=== PATIENT | female | born 1960 | race Hispanic/Latino ===

== ENCOUNTER 2018-05-17 07:16 | Emergency (ER) | payer OTHER ==
[2018-05-17] MEDS ORDERED: ONDANSETRON 4 MG/2 ML VIAL ONE (07:49)
[2018-05-17] MEDS ORDERED: KETOROLAC 30 MG/ML INJ ONE (07:49)
[2018-05-17] MEDS ORDERED: MORPHINE 4 MG/ML SYR ONE ×2 (07:49→09:09)
[2018-05-17 08:00] LABS: Absolute Lymphocytes (CBC) 2.7 K/uL (0.7-4.9); Absolute Monocytes 0.5 K/uL (0.1-1.3); Absolute Neutrophil 5.5 K/uL (1.8-8.0); Basophils % 0.8 % (0-1.3); Eosinophils % 1.2 % (0-4.4); Hematocrit 39.8 % (36.0-45.0); Lymphocytes % 30.7 % (15.3-44.8); MCH 32.1 pg (27.0-35.0); MCV 91.4 fL (80-100); Monocytes % 5.5 % (3.3-12.3); RBC Red Blood Cell Count 4.35 M/uL (3.86-4.86)
[2018-05-17] MEDS ORDERED: DIAZEPAM 5 MG TABLET ONE (08:18)
[2018-05-17 08:19] LABS: Albumin 4.6 g/dL (3.4-5.0); Bilirubin Total 0.5 mg/dL (0.2-1.0); Potassium 3.6 mmol/L (3.5-5.1); Protein, Total 7.9 g/dL (6.4-8.2)
[2018-05-17] MEDS ORDERED: DEXAMETHASONE 10 MG/ML VIAL ONE (08:55)
--- NOTE | 2018-05-17 09:20 | RAD REPORT ---
EXAM DESCRIPTION: CT - Angio Aorta For Dissection - 05/17/2018 8:42 am CLINICAL HISTORY: . Chest and abd pain COMPARISON: None TECHNIQUE: Computed tomography angiography of the chest, abdomen pelvis were obtained. 100 cc Isovue 370 was administered intravenously. Coronal and sagittal reconstruction were performed. MIP 3D reconstruction was performed All CT scans are performed using dose optimization technique as appropriate and may include automated exposure control or mA/KV adjustment according to patient size. FINDINGS: An aortic dissection is not seen. An aortic aneurysm is not displayed. The celiac, SMA and MACIE are patent . A lung consolidation is not present. A pericardial effusion is not seen. A pleural effusion is not n oted. The spleen, pancreas adrenals and kidneys demonstrate no significant abnormality. Hepatic cysts are present. The largest measures 6 centimeters The appendix is normal. There no evidence diverticulitis. No ascites is noted. A 45 millimeter mass abuts the right aspect of the uterus containing calcification. A 18 millimeter fatty mass abuts the proximal ascending colon with mild stranding within the adjacent fat. This has the appearance of epiploic appendagitis A tiny umbilical hernia is present IMPRESSION: Negative for an aortic dissection. Epiploic appendagitis involving the right colon 45 millimeter mass abutting the right aspect of the uterus containing calcification most likely repre sents a subserosal fibroid. An ovarian mass is less likely. It is recommended that the patient have a followup ultrasound in 2 months to assess stability and further characterize the mass.
--- NOTE | 2018-05-17 09:22 | RAD REPORT ---
EXAM DESCRIPTION: RAD - Pelvis - 05/17/2018 8:29 am CLINICAL HISTORY: Pelvic pain FINDINGS: No fracture or dislocation is seen. No bone or joint abnormality is displayed
--- NOTE | 2018-05-17 09:22 | RAD REPORT ---
EXAM DESCRIPTION: RAD - Lumbar Spine 3 Views - 05/17/2018 8:29 am CLINICAL HISTORY: Back pain FINDINGS: The alignment of the lumbar spine is satisfactory. No fracture or dislocation is seen. Minimal spondylosis involves the lumbar spine
--- NOTE | 2018-05-17 09:42 | EDPHYS ---
Physician Documentation [facility] Name: Laly Machado Age: 57 yrs Sex: Female : 1960 Arrival Date: 05/17/2018 Time: 07:20 Bed 14 Private MD: Julia Corrales K ED Physician Jimbo Starks HPI: 05/17 07:47 This 57 yrs old Female presents to ER via Wheelchair with complaints of Leg xavier Pain. 07:47 The patient presents with decreased range of motion. The complaints affect the right xavier gluteus deepti and right gluteal fold. Context: The problem was sustained at an unknown site. Onset: The symptoms/episode began/occurred 1 day(s) ago. Modifying factors: The symptoms are alleviated by nothing. the symptoms are aggravated by movement. Associated signs and symptoms: The patient has no apparent associated signs or symptoms. Treatment prior to arrival includes: no previous treatment. The patient has not experienced similar symptoms in the past. Historical: - Allergies: 07:30 No Known Allergies; tw2 - Home Meds: 07:30 losartan 50 mg oral tab 1 tab once daily [Active]; tw2 - PMHx: 07:30 Hypertension; tw2 - PSHx: 07:30 None; tw2 - Immunization history:: Adult Immunizations up to date. - Social history:: Smoking status: Patient/guardian denies using tobacco. - Ebola Screening: : Patient negative for fever greater than or equal to 101.5 degrees Fahrenheit, and additional compatible Ebola Virus Disease symptoms Patient denies travel to an Ebola-affected area in the 21 days before illness onset. - Family history:: not pertinent. ROS: 07:47 Constitutional: Negative for fever, chills, and weight loss, Eyes: Negative for injury, xavier pain, redness, and discharge, ENT: Negative for injury, pain, and discharge, Neck: Negative for injury, pain, and swelling, Cardiovascular: Negative for chest pain, palpitations, and edema, Respiratory: Negative for shortness of breath, cough, wheezing, and pleuritic chest pain, Abdomen/GI: Negative for abdominal pain, nausea, vomiting, diarrhea, and constipation, : Negative for injury, bleeding, discharge, and swelling, MS/Extremity: Negative for injury and deformity, Skin: Negative for injury, rash, and discoloration, Neuro: Negative for headache, weakness, numbness, tingling, and seizure, Psych: Negative for depression, anxiety, suicide ideation, homicidal ideation, and hallucinations, Allergy/Immunology: Negative for hives, rash, and allergies, Endocrine: Negative for neck swelling, polydipsia, polyuria, polyphagia, and marked weight changes. 07:47 Back: Positive for pain at rest. Exam: 07:47 Constitutional: This is a well developed, well nourished patient who is awake, alert, xavier and in no acute distress. Head/Face: Normocephalic, atraumatic. Eyes: Pupils equal round and reactive to light, extra-ocular motions intact. Lids and lashes normal. Conjunctiva and sclera are non-icteric and not injected. Cornea within normal limits. Periorbital areas with no swelling, redness, or edema. ENT: Nares patent. No nasal discharge, no septal abnormalities noted. Tympanic membranes are normal and external auditory canals are clear. Oropharynx with no redness, swelling, or masses, exudates, or evidence of obstruction, uvula midline. Mucous membranes moist. Neck: Trachea midline, no thyromegaly or masses palpated, and no cervical lymphadenopathy. Supple, full range of motion without nuchal rigidity, or vertebral point tenderness. No Meningismus. Chest/axilla: Normal chest wall appearance and motion. Nontender with no deformity. No lesions are appreciated. Cardiovascular: Regular rate and rhythm with a normal S1 and S2. No gallops, murmurs, or rubs. Normal PMI, no JVD. No pulse deficits. Respiratory: Lungs have equal breath sounds bilaterally, clear to auscultation and percussion. No rales, rhonchi or wheezes noted. No increased work of breathing, no retractions or nasal flaring. Abdomen/GI: Soft, non-tender, with normal bowel sounds. No distension or tympany. No guarding or rebound. No evidence of tenderness throughout. Back: No spinal tenderness. No costovertebral tenderness. Full range of motion. Skin: Warm, dry with normal turgor. Normal color with no rashes, no lesions, and no evidence of cellulitis. Neuro: Awake and alert, GCS 15, oriented to person, place, time, and situation. Cranial nerves II-XII grossly intact. Motor strength 5/5 in all extremities. Sensory grossly intact. Cerebellar exam normal. Normal gait. Psych: Awake, alert, with orientation to person, place and time. Behavior, mood, and affect are within normal limits. 07:47 Musculoskeletal/extremity: Circulation is intact in all extremities. Sensation intact. Compartment Syndrome exam of affected extremity: is normal. DVT Exam: no swelling, negative Homans' sign noted on exam, no appreciated bluish discoloration, no erythema, no increased warmth, pain, tenderness. 07:47 Skin: Appearance: Color: normal in color, Temperature: normal temperature, Moisture: normal moisture, petechiae, not noted, ecchymosis, not noted, diaphoresis is not appreciated, swelling, is not appreciated. Vital Signs: 07:29 BP 166 / 92; Pulse 80; Resp 18; Temp 97.9(O); Pulse Ox 99% on R/A; Pain 10/10; tw2 08:30 BP 132 / 67; Pulse 66; Resp 17; Pulse Ox 96% on R/A; tw2 09:24 BP 128 / 86; Pulse 65; Resp 17; Pulse Ox 96% on R/A; tw2 10:45 BP 117 / 65; Pulse 66; Resp 17; Pulse Ox 99% on R/A; tw2 MDM: 07:24 Patient medically screened. [facility] 07:50 Data reviewed: vital signs, nurses notes, lab test result(s), radiologic studies, CT xavier scan, plain films. 05/17 07:47 Order name: CBC with Diff; Complete Time: 08:39 xavier 05/17 07:47 Order name: Comprehensive Metabolic Panel; Complete Time: 08:39 xavier 05/17 07:47 Order name: CT Aorta for Dissection; Complete Time: 09:33 xavier 05/17 07:47 Order name: Pelvis XRAY; Complete Time: 09:33 xavier 05/17 07:47 Order name: Lumbar Spine (3 Views) XRAY; Complete Time: 09:33 xavier 05/17 09:45 Order name: Urine Dipstick--Ancillary (enter results); Complete Time: 10:38 ds4 05/17 07:47 Order name: Urine Dipstick-Ancillary (obtain specimen); Complete Time: 09:46 xavier Administered Medications: 07:45 Drug: Zofran 4 mg Route: IVP; Site: right antecubital; tw2 08:16 Follow up: Response: No adverse reaction tw2 07:47 Drug: TORadol 30 mg Route: IVP; Site: right antecubital; tw2 08:16 Follow up: Response: No adverse reaction; Pain is unchanged, physician notified tw2 07:49 Drug: morphine 4 mg Route: IVP; Site: right antecubital; tw2 08:15 Follow up: Response: No adverse reaction; Pain is unchanged, physician notified tw2 08:15 Drug: Valium 5 mg Route: PO; tw2 10:07 Follow up: Response: No adverse reaction; Pain is decreased tw2 09:08 Drug: Decadron - Dexamethasone 10 mg Route: IVP; Site: right antecubital; tw2 10:07 Follow up: Response: No adverse reaction tw2 09:11 Drug: morphine 4 mg Route: IVP; Site: right antecubital; tw2 10:08 Follow up: Response: No adverse reaction tw2 10:00 Drug: Cipro 400 mg Volume: 200 ml; Route: IVPB; Infused Over: 60 mins; Site: right tw2 antecubital; 11:08 Follow up: Response: No adverse reaction; IV Status: Completed infusion tw2 10:00 Drug: Flagyl 500 mg Volume: 100 ml; Route: IVPB; Rate: 200 ml/hr; Infused Over: 30 tw2 mins; Site: right antecubital; 11:08 Follow up: Response: No adverse reaction; IV Status: Completed infusion tw2 Disposition: 05/17/18 09:41 Discharged to Home. Impression: Sciatica, right side, Pain in right leg, Left sided colitis - epiploic appendagitis. - Condition is Stable. - Discharge Instructions: Musculoskeletal Pain, Sciatica, Sciatica, [id number], Radicular Pain, Colitis. - Prescriptions for Ibuprofen 600 mg Oral Tablet - take 1 tablet by ORAL route every 6 hours As needed take with food; 20 tablet. Tylenol- Codeine #3 300-30 mg Oral Tablet - take 2 tablets by ORAL route every 6 hours As needed; 24 tablet. Valium 2 mg Oral Tablet - take 1 tablet by ORAL route every 8 hours As needed; 20 tablet. Medrol (Levon) 4 mg Oral Tablets, Dose Pack - take 1 tablet by ORAL route as directed - follow package instructions; 1 packet. Flagyl 500 mg Oral Tablet - take 1 tablet by ORAL route every 6 hours for 7 days; 28 tablet. Cipro 500 mg Oral Tablet - take 1 tablet by ORAL route every 12 hours for 7 days; 14 tablet. - Medication Reconciliation Form, Thank You Letter, Antibiotic Education, Prescription Opioid Use form. - Follow up: Julia Corrales; When: 2 - 3 days; Reason: Recheck today's complaints, Continuance of care, Re-evaluation by your physician. Follow up: Heide Valiente MD; When: 2 - 3 days; Reason: Recheck today's complaints, Re-evaluation by your physician. Follow up: Lala Christine MD; When: 2 - 3 days; Reason: Recheck today's complaints, Re-evaluation by your physician. - Problem is new. - Symptoms have improved. Signatures: Dispatcher [employer] EDJimbo Varela MD MD cha Wise, Tara RN RN tw2 Corrections: (The following items were deleted from the chart) 09:42 09:41 05/17/2018 09:41 Discharged to Home. Impression: Sciatica, right side; Pain in xavier right leg; Left sided colitis - epiploic appendagitis. Condition is Stable. Discharge Instructions: Musculoskeletal Pain, Sciatica, Sciatica, [id number], Radicular Pain. Prescriptions for Ibuprofen 600 mg Oral Tablet - take 1 tablet by ORAL route every 6 hours As needed take with food; 20 tablet, Tylenol-Codeine #3 300-30 mg Oral Tablet - take 2 tablets by ORAL route every 6 hours As needed; 24 tablet, Valium 2 mg Oral Tablet - take 1 tablet by ORAL route every 8 hours As needed; 20 tablet, Medrol (Levon) 4 mg Oral Tablets, Dose Pack - take 1 tablet by ORAL route as directed - follow package instructions; 1 packet. and Forms are Medication Reconciliation Form, Thank You Letter, Antibiotic Education, Prescription Opioid Use. Follow up: Julia Corrales; When: 2 - 3 days; Reason: Recheck today's complaints, Continuance of care, Re-evaluation by your physician. Problem is new. Symptoms have improved. [facility] 11:10 09:42 05/17/2018 09:41 Discharged to Home. Impression: Sciatica, right side; Pain in tw2 right leg; Left sided colitis - epiploic appendagitis. Condition is Stable. Discharge Instructions: Musculoskeletal Pain, Sciatica, Sciatica, [id number], Radicular Pain. Prescriptions for Ibuprofen 600 mg Oral Tablet - take 1 tablet by ORAL route every 6 hours As needed take with food; 20 tablet, Tylenol-Codeine #3 300-30 mg Oral Tablet - take 2 tablets by ORAL route every 6 hours As needed; 24 tablet, Valium 2 mg Oral Tablet - take 1 tablet by ORAL route every 8 hours As needed; 20 tablet, Medrol (Levon) 4 mg Oral Tablets, Dose Pack - take 1 tablet by ORAL route as directed - follow package instructions; 1 packet. and Forms are Medication Reconciliation Form, Thank You Letter, Antibiotic Education, Prescription Opioid Use. Follow up: Julia Corrales; When: 2 - 3 days; Reason: Recheck today's complaints, Continuance of care, Re-evaluation by your physician. Follow up: Heide Valiente; When: 2 - 3 days; Reason: Recheck today's complaints, Re-evaluation by your physician. Follow up: Lala Christine; When: 2 - 3 days; Reason: Recheck today's complaints, Re-evaluation by your physician. Problem is new. Symptoms have improved. xavier
--- NOTE | 2018-05-17 09:42 | ER ---
Nurse's Notes [facility] Name: Laly Machado Age: 57 yrs Sex: Female : 1960 Arrival Date: 05/17/2018 Time: 07:20 Bed 14 Private MD: Julia Corrales K Diagnosis: Sciatica, right side;Pain in right leg;Left sided colitis-epiploic appendagitis Presentation: 05/17 07:28 Presenting complaint: Patient states: my right leg hurts right under my buttocks all tw2 the way down, started Friday, no redness/swelling noted. Transition of care: patient was not received from another setting of care. Onset of symptoms was May 17, 2018. Risk Assessment: Do you want to hurt yourself or someone else? Patient reports desire/thoughts of hurting themselves or someone else. Provider notified. Initial Sepsis Screen: Does the patient meet any 2 criteria? No. Patient's initial sepsis screen is negative. Does the patient have a suspected source of infection? No. Patient's initial sepsis screen is negative. Care prior to arrival: None. 07:28 Method Of Arrival: Wheelchair tw2 07:28 Acuity: MAYURI 4 tw2 Historical: - Allergies: 07:30 No Known Allergies; tw2 - Home Meds: 07:30 losartan 50 mg oral tab 1 tab once daily [Active]; tw2 - PMHx: 07:30 Hypertension; tw2 - PSHx: 07:30 None; tw2 - Immunization history:: Adult Immunizations up to date. - Social history:: Smoking status: Patient/guardian denies using tobacco. - Ebola Screening: : Patient negative for fever greater than or equal to 101.5 degrees Fahrenheit, and additional compatible Ebola Virus Disease symptoms Patient denies travel to an Ebola-affected area in the 21 days before illness onset. - Family history:: not pertinent. Screenin:32 Abuse screen: Denies threats or abuse. Nutritional screening: No deficits noted. tw2 Tuberculosis screening: No symptoms or risk factors identified. Fall Risk None identified. Assessment: 07:31 General: Appears comfortable, well groomed, Behavior is calm, cooperative, appropriate tw2 for age. Pain: Complains of pain in back of right leg. Neuro: Level of Consciousness is awake, alert, obeys commands, Oriented to person, place, time, situation. Cardiovascular: Denies chest pain, shortness of breath, Capillary refill < 3 seconds Patient's skin is warm and dry. Respiratory: Airway is patent Respiratory effort is even, unlabored, Respiratory pattern is regular, symmetrical. GI: No signs and/or symptoms were reported involving the gastrointestinal system. : No signs and/or symptoms were reported regarding the genitourinary system. EENT: No signs and/or symptoms were reported regarding the EENT system. Derm: No signs and/or symptoms reported regarding the dermatologic system. Musculoskeletal: Circulation, motion, and sensation intact. Range of motion: intact in all extremities, Reports pain in right leg. 07:54 Cardiovascular: Heart tones S1 S2. Respiratory: Breath sounds are clear bilaterally. tw2 GI: Abdomen is round non-distended, Bowel sounds present X 4 quads. 08:30 Reassessment: No changes from previously documented assessment. Patient and/or family tw2 updated on plan of care and expected duration. Pain level reassessed. Patient is alert, oriented x 3, equal unlabored respirations, skin warm/dry/pink. 09:25 Reassessment: Patient appears in no apparent distress at this time. No changes from tw2 previously documented assessment. Patient and/or family updated on plan of care and expected duration. Pain level reassessed. Patient is alert, oriented x 3, equal unlabored respirations, skin warm/dry/pink. Patient states feeling better. 10:44 Reassessment: Patient appears in no apparent distress at this time. Patient and/or tw2 family updated on plan of care and expected duration. Pain level reassessed. Patient is alert, oriented x 3, equal unlabored respirations, skin warm/dry/pink. provider at bedside at this time going over results. Patient states feeling better. Patient states symptoms have improved. Vital Signs: 07:29 BP 166 / 92; Pulse 80; Resp 18; Temp 97.9(O); Pulse Ox 99% on R/A; Pain 10/10; tw2 08:30 BP 132 / 67; Pulse 66; Resp 17; Pulse Ox 96% on R/A; tw2 09:24 BP 128 / 86; Pulse 65; Resp 17; Pulse Ox 96% on R/A; tw2 10:45 BP 117 / 65; Pulse 66; Resp 17; Pulse Ox 99% on R/A; tw2 ED Course: 07:20 Patient arrived in ED. mr 07:21 Julia Corrales MD is Private Physician. mr 07:23 Jimbo Starks MD is Attending Physician. xavier 07:27 Ruby Mathis, CAMACHO is Primary Nurse. tw2 07:29 Triage completed. tw2 07:29 Arm band placed on. tw2 07:32 Bed in low position. Call light in reach. Adult w/ patient. Pulse ox on. NIBP on. tw2 07:32 No provider procedures requiring assistance completed. tw2 07:45 Inserted saline lock: 22 gauge in right antecubital area, using aseptic technique. tw2 Blood collected. 08:26 Pelvis XRAY In Process Unspecified. EDMS 08:26 Lumbar Spine (3 Views) XRAY In Process Unspecified. EDMS 08:42 CT Aorta for Dissection In Process Unspecified. EDMS 08:42 CT completed. Patient moved to CT via wheelchair. Patient moved back from CT. la2 09:38 Julia Corrales MD is Referral Physician. xavier 09:41 Heide Valiente MD is Referral Physician. xavier 09:41 Lala Christine MD is Referral Physician. xavier 09:42 Awaiting: completion of IV abx prior to discharge. tw2 09:44 Urine collected: clean catch specimen, clear. ds4 11:09 IV discontinued, intact, bleeding controlled, No redness/swelling at site. Pressure tw2 dressing applied. Administered Medications: 07:45 Drug: Zofran 4 mg Route: IVP; Site: right antecubital; tw2 08:16 Follow up: Response: No adverse reaction tw2 07:47 Drug: TORadol 30 mg Route: IVP; Site: right antecubital; tw2 08:16 Follow up: Response: No adverse reaction; Pain is unchanged, physician notified tw2 07:49 Drug: morphine 4 mg Route: IVP; Site: right antecubital; tw2 08:15 Follow up: Response: No adverse reaction; Pain is unchanged, physician notified tw2 08:15 Drug: Valium 5 mg Route: PO; tw2 10:07 Follow up: Response: No adverse reaction; Pain is decreased tw2 09:08 Drug: Decadron - Dexamethasone 10 mg Route: IVP; Site: right antecubital; tw2 10:07 Follow up: Response: No adverse reaction tw2 09:11 Drug: morphine 4 mg Route: IVP; Site: right antecubital; tw2 10:08 Follow up: Response: No adverse reaction tw2 10:00 Drug: Cipro 400 mg Volume: 200 ml; Route: IVPB; Infused Over: 60 mins; Site: right tw2 antecubital; 11:08 Follow up: Response: No adverse reaction; IV Status: Completed infusion tw2 10:00 Drug: Flagyl 500 mg Volume: 100 ml; Route: IVPB; Rate: 200 ml/hr; Infused Over: 30 tw2 mins; Site: right antecubital; 11:08 Follow up: Response: No adverse reaction; IV Status: Completed infusion Outcome: 09:41 Discharge ordered by . xavier 11:08 Discharged to home ambulatory, with significant other. 11:08 Condition: stable 11:08 Discharge instructions given to patient, significant other, Instructed on discharge instructions, follow up and referral plans. no drinking with medication, no driving heavy equipment, medication usage, Demonstrated understanding of instructions, follow-up care, medications, Prescriptions given X 6 11:10 Patient left the ED. tw2 Signatures: Dispatcher [employer] EDMS Jimbo Starks MD MD cha Rivera, Maria mr Swanson, Donovan ds4 Ruby Mathis RN RN tw2 Meera Kami la2
[2018-05-17 09:50] LABS: Urine Blood TRACE (NEG); Urine Glucose NEGATIVE (NEG); Urine Protein NEGATIVE (NEG); Urine pH 6.5 (5.0-7.0)
[2018-05-17] MEDS ORDERED: METRONIDAZOLE 500mg IVPB 500 MG/100 ML BAG IV ONE (09:50)
[2018-05-17] MEDS ORDERED: CIPROFLOXACIN 400mg IV 400 MG/200 ML BAG IV ONE (09:50)
== END 2018-05-17 11:10 | disposition home or self-care (01) ==
LOC: ER 07:16
DX: M54.31 Sciatica, right side (principal); M79.604 Pain in right leg; K63.89 Other specified diseases of intestine; K51.50 Left sided colitis without complications
CPT/HCPCS: 36415; 71275; 72100; 72170; 74175; 80053; 81003; 85025; 96365; 96368; 96375; 99284; J0744; J1100; J2405; Q9967